=== PATIENT | female | born 1965 | race Caucasian/White ===

== ENCOUNTER 2024-04-22 12:54 | Emergency (ER) | payer MEDICAID ==
[~2024-04-22] VITALS: Ht 154.9 cm; Wt 83.5 kg
[2024-04-22] MEDS ORDERED: LEVOTHYROXIN0.137 MG PO (14:10)
[2024-04-22] MEDS ORDERED: ATORVASTATIN CA80 MG PO (14:11)
[2024-04-22] MEDS ORDERED: HYDROCHLOROTHIA1 T14 PO (14:11)
[2024-04-22] MEDS ORDERED: ACID-PEP20 MG PO (14:12)
[2024-04-22] MEDS ORDERED: AMOXICILLIN 50500 MG (14:12)
[2024-04-22] MEDS ORDERED: Ketorolac 30 MG/ML VIAL IM ONE (14:15)
[2024-04-22 14:18] LABS: BASO # 0.02 K/mm3 (0.02-0.10); EOS # 0.06 K/mm3 (0.04-0.40); EOS % 0.7 % (1.0-5.0); HEMATOCRIT 42.1 % (37.0-47.0); HEMOGLOBIN 14.8 g/dL (12.5-16.0); LYMPH# 1.36 K/mm3 (1.50-4.00); MEAN CELL VOLUME 89 fl (78-100); MEAN CORPUSCULAR HEMOGLOBIN 31 pg (27-31); MEAN CORPUSCULAR HGB CONC 35 g/dL (33-37); MEAN PLATELET VOLUME 10.8 fl (7.4-10.4); MONO # 0.81 K/mm3 (0.20-0.80); NEU # 5.76 K/mm3 (1.40-6.50); PLATELET COUNT 187 K/mm3 (130-400); RED BLOOD COUNT 4.74 M/mm3 (4.10-5.30); RED CELL DISTRIBUTION WIDTH 13.2 % (11.5-14.5)
[2024-04-22 14:22] LABS: ALBUMIN 4.6 g/dL (3.5-5.0)
[2024-04-22 14:23] LABS: CALCIUM 9.3 mg/dL (8.3-10.5)
[2024-04-22 14:25] LABS: TOTAL PROTEIN 8.2 g/dL (6.4-8.3)
[2024-04-22 14:27] LABS: TOTAL BILIRUBIN 0.6 mg/dL (0.2-1.2)
[2024-04-22] MEDS ORDERED: Ketorolac 30 MG/ML VIAL IV ONE (14:30)
[2024-04-22] MEDS ORDERED: NS 1,000 ML IV SCH (14:45)
[2024-04-22] MEDS ORDERED: Acetaminophen 325 MG TAB PO ONE (15:30)
[2024-04-22 17:04] LABS: URINE APPEARANCE CLOUDY (CLEAR); URINE COLOR YELLOW (YELLOW)
[2024-04-22 17:05] LABS: PH-URINE 5.5 (5.0 - 8.0); URINE BILIRUBIN 2+ (NEGATIVE); URINE BLOOD TRACE-INTACT (NEGATIVE); URINE GLUCOSE NEGATIVE (NEGATIVE); URINE KETONE TRACE (NEGATIVE); URINE LEUKOCYTE ESTERASE 3+ (NEGATIVE); URINE NITRATE NEGATIVE (NEGATIVE); URINE PROTEIN(semi-quant) 2+ (NEGATIVE)
[2024-04-22 17:06] LABS: URINE WBC >50 /hpf (0-3)
[2024-04-22 17:07] LABS: URINE MUCUS PRESENT (NOT PRESENT)
[2024-04-22 17:15] VITALS: BP 130/76
== END 2024-04-22 17:16 | disposition home or self-care (01) ==
LOC: ED 12:54
PROVIDERS: Family Medicine
DX: J10.1 Influenza due to other identified influenza virus with other respiratory manifestations (principal); M60.9 Myositis, unspecified
CPT/HCPCS: J1885; J7030